=== PATIENT | female | born 1950 | race Caucasian/White ===

== ENCOUNTER 2022-01-31 15:29 | Outpatient (CLI) | payer MEDICARE, BC ==
--- NOTE | 2022-01-31 16:06 | XRAY Report ---
PROCEDURE: Thoracic Spine 2 View INDICATIONS: L THORACIC PX TECHNIQUE: 2 views of the thoracic spine were acquired. COMPARISON: None. FINDINGS: Bones: No fractures or dislocations. No suspicious bony lesions. 12 pairs of ribs are noted, and a ppear intact where visualized. Scattered multilevel degenerative disc space narrowing. Soft tissues: No paravertebral stripe thickening. IMPRESSION: No visualized acute fracture or dislocation. However, occult injury cannot be excluded. Recommend alexsander rt interval imaging follow-up in 7-10 days as clinically indicated for additional evaluation. Reviewed by: Kiara Boykin MD on 01/31/2022 4:05 PM PDT Approved by: Kiara Boykin MD on 01/31/2022 4:05 PM PDT Station ID: [id number]
== END 2022-01-31 15:30 | disposition home or self-care (01) ==
LOC: DI.N 15:29
PROVIDERS: ATTEND Internal Medicine
DX: M47.814 Spondylosis without myelopathy or radiculopathy, thoracic region (principal)

== ENCOUNTER 2023-09-05 10:43 | Outpatient (CLI) | payer MEDICARE, BC ==
--- NOTE | 2023-09-05 19:52 | XRAY Report ---
PROCEDURE: Shoulder 2+V LT INDICATIONS: LEFT SHOULDER PAIN TECHNIQUE: 3 views of the shoulder were acquired. COMPARISON: None FINDINGS: Bones: No fractures or dislocations. No suspicious bony lesions. Visualized ribs appear intact. S mall metaphyseal bone island, 5 mm. Joint spaces preserved Soft tissues: No suspicious soft tissue calcifications. IMPRESSION: Unremarkable shoulder radiographs Reviewed by: Gato Walter MD on 09/05/2023 6:50 PM [facility] Approved by: Gato Walter MD on 09/05/2023 6:50 PM [place] Station ID: [id number]
== END 2023-09-05 10:44 | disposition home or self-care (01) ==
LOC: DI.N 10:43
PROVIDERS: ATTEND Nurse Practitioner Family
DX: M25.512 Pain in left shoulder (principal)

== ENCOUNTER 2024-05-31 12:42 | Outpatient (CLI) | payer MEDICARE, BC | END 2024-05-31 23:59 | disposition short-term general hospital (02) | LOC: EMS 12:42 | DX: R07.89 Other chest pain (principal) | CPT/HCPCS: A0425; A0427 ==